=== PATIENT | male | born 1955 | race Caucasian/White ===

== ENCOUNTER → 2019-05-08 12:26 | Outpatient (CLI) | payer BC ==
--- NOTE | ~2019-05-08 | EC ---
PATIENT:REYNA CUMMINGS DATE OF SERVICE: 05/08/19 SEX: M MEDICAL RECORD: [id number] DATE OF : 55 [facility] AGE OF PATIENT: 63 ADMISSION DATE: 05/08/19 REFERRING PHYSICIAN: INTERPRETING PHYSICIAN: RUI BARKER MD ECHOCARDIOGRAM REPORT ECHO CHARGES 4 ECHO COMPLETE Date: 05/08/19 CLINICAL DIAGNOSIS: CP/MURMUR ECHOCARDIOGRAPHIC MEASUREMENTS (adult normal given) AC root (d.<3.7cm) 3.9 cm LV Septum d (<1.2 cm> 1.5 cm Valve Excursion 2.6 cm LV Septum (systole) 2.2 cm Left Atria (s.<4.0cm> 4.5 cm LVPW d(<1.2cm) 1.2 cm RV (d.<2.3cm) 2.9 cm LVPW (sytole) 2.2 cm LV diastole(<5.6CM) 7.0 cm MV E-F(>70mm/sec) cm LV systole 3.6 cm LVOT Diameter 2.4 cm MV exc.(>10mm) cm Est.ejection fraction (50-75%) % DOPPLER: LVIT cm/sec A 88.0 cm/sec E 67.0 cm/sec LA cm/sec RVSP 33.2 mmHg LVOT 139 cm/sec AOP1/2T m/s Asc. Ao 147 cm/sec RVOT 59.0 cm/sec RA cm/sec PA 86.0 cm/sec AV Gradient Peak 8.7 mmHg AV Mean 5.3 mmHg AV Area 4.0 cm MV Gradient Peak 4.0 mmHg MV Mean 1.2 mmHg MV Area cm COMMENTS: OP - HC Nuclear Physics Professor: 1 DORINDA FABIANOE Car Clerk Pullman: 3 Dr. Travis TAPE# PACS Pericardial Effusion N DATE OF SERVICE: Adequate 2-D echo, color-flow and spectral Doppler, and M-mode. LVH is present. LV internal dimension is normal. Wall motion is normal. EF is greater than or equal to 55%. Aortic valve is tricuspid. No evidence of stenosis on Doppler interrogation. Left atrium is normal 4.5 cm. Mitral valve shows no prolapse. Mild MR. Right-sided chambers are grossly normal. Mild TR. TRANSINT:[id number] Voice Confirmation ID: [id number] DOCUMENT ID: [id number] ECHOCARDIOGRAM REPORT [id number] REYNA CUMMINGS,RUI Downs MD CC: [id number] DICTATION DATE: 05/12/19 1332 ROUND CUTTER OPERATOR: 05/12/19 1426 DEP CLI 05/08/19 [place] [id number]
--- NOTE | ~2019-05-08 | ST ---
PATIENT:REYNA CUMMINGS MEDICAL RECORD: [id number] SEX: M LOCATION:[facility] ORDER #: ADMISSION DATE: 05/08/19 AGE OF PATIENT: 63 REFERRING PHYSICIAN: INTERPRETING PHYSICIAN: RUI BARKER MD DATE OF SERVICE: 05/08/2019 PROCEDURE: Treadmill stress test. Baseline ECG is normal. Exercised for 9 minutes on Seng protocol. Maximal heart rate is 147 beats per minute, greater than 85% of max predicted. No ECG changes for ischemia. No symptoms of ischemia. Normal blood pressure response to exercise. No arrhythmias noted. Good exercise tolerance for age. TRANSINT:[id number] Voice Confirmation ID: [id number] DOCUMENT ID: [id number] RUI BARKER MD CC: [id number] DICTATION DATE: 05/13/19 1312 BLANKET WINDER OPERATOR: 05/13/19 1340 DEP CLI 05/08/19 [place] [id number] [place] [address]
== END | disposition home or self-care (01) ==
LOC: D.HCCARDIO 12:26
PROVIDERS: ATTEND Internal Medicine Interventional Cardiology
DX: I20.9 Angina pectoris, unspecified (principal); R07.9 Chest pain, unspecified